=== PATIENT | female | born 1975 | race Two or more races ===

== ENCOUNTER 2020-05-18 15:27 | Emergency (ER) | payer MEDICAID ==
[~2020-05-18] VITALS: Ht 160 cm; Wt 131.0 kg
[2020-05-18 16:34] VITALS: BP 180/103
[2020-05-18 18:07] LABS: CLARITY,URINE SLIGHTLY CLOUDY (Clear); COLOR,URINE YELLOW (Yellow); GLUCOSE, URINE NEGATIVE (Neg); KETONES,URINE NEGATIVE (Neg); LEUKOCYTE ESTERASE ,URINE NEGATIVE (Neg); NITRITES, URINE NEGATIVE (Neg); OCCULT BLOOD,URINE NEGATIVE (Neg); PH,URINE 6.5 (4.8-8.0); PROTEIN,URINE NEGATIVE (Neg)
[2020-05-18 18:08] LABS: URINE HCG NEGATIVE (NEG)
[2020-05-18 18:16] LABS: BACTERIA,URINE 1+ /HPF (Neg); RBC,URINE 0-2 /HPF (0-2); SQUAMOUS EPITHELIAL CELL,UR MODERATE /LPF (FEW); UA COLLECTION TYPE CLN CATCH MIDSTREAM; WBC,URINE 0-4 /HPF (0-4)
== END 2020-05-18 18:44 | disposition home or self-care (01) ==
LOC: ER 15:29
DX: S39.012A Strain of muscle, fascia and tendon of lower back, initial encounter (principal); R35.8 Other polyuria; R10.84 Generalized abdominal pain; R33.9 Retention of urine, unspecified; N18.9 Chronic kidney disease, unspecified; G89.29 Other chronic pain; Z87.440 Personal history of urinary (tract) infections; Z88.5 Allergy status to narcotic agent; X58.XXXA Exposure to other specified factors, initial encounter; Y93.89 Activity, other specified; Y92.89 Other specified places as the place of occurrence of the external cause; Y99.8 Other external cause status
CPT/HCPCS: 81001; 81025; 99283